=== PATIENT | female | born 1995 | race Caucasian/White ===

== ENCOUNTER 2022-06-30 10:30 | Outpatient (CLI) | payer BC ==
[~2022-06-30] VITALS: Ht 165.1 cm; Wt 90.5 kg
[2022-06-30 10:37] VITALS: TEMP 97.1
[2022-06-30] MEDS ORDERED: PROTONIX20 MG PO (11:12)
[2022-06-30] MEDS ORDERED: PRENATAL TABLET PO (11:12)
[2022-06-30] MEDS ORDERED: ZOFRAN ODT4 MG PO (11:12)
[2022-06-30 11:15] VITALS: BP 123/71; PULSE 71
--- NOTE | 2022-06-30 11:15 | NUR ---
1050- Pt arrives on unit via wheelchair from ED. Pt complains of visual disturbance this morning and a headache. Pt has hydrocephalus and a shut placement. States headaches are chronic. 1056- Pt into bed, EFM and TOCO on and tracing well. O2 sat on and tracing maternal HR. VSS. Assessment completed. Pt denies VB, LOF, UCs. +FM. Pt states she is scheduled for an induction on Saturday in [place] due to FAMILY [employer] shunt. Pt states the visual disturbances have resolved.
[2022-06-30 11:43] LABS: COLLECTION METHOD CLEAN CATCH
[2022-06-30 11:45] VITALS: BP 119/72; PULSE 68
--- NOTE | 2022-06-30 11:45 | NUR ---
1145- Dr Maxwell at bedside. Discusses symptoms and POC.
[2022-06-30 11:47] LABS: BASO # 0.1 K/mm3 (0.0-0.2); BASO % 0.5 % (0.0-2.0); EOS # 0.1 K/mm3 (0.0-0.7); EOS % 1.3 % (0.0-4.0); HEMOGLOBIN 11.9 g/dl (12.5-16.0); LYMPH # 2.4 K/mm3 (1.2-3.4); LYMPH % 25.4 % (20.0-51.0); MEAN CELL VOLUME 85 fl (80.0-100.0); MEAN CORPUSCULAR HEMOGLOBIN 29 pg (27-31); MEAN CORPUSCULAR HGB CONC 33 g/dl (33.0-37.0); MEAN PLATELET VOLUME 10.1 fl (7.4-10.4); MONO # 0.8 K/mm3 (0.1-0.6); MONO % 8.5 % (1.7-9.3); PLATELET COUNT 312 K/mm3 (130-400); RED BLOOD COUNT 4.18 M/mm3 (4.10-5.30)
[2022-06-30 11:48] LABS: HEMATOCRIT 35.6 % (37.0-47.0)
[2022-06-30 11:52] LABS: MUCOUS Present (NOT PRESENT); URINE BACTERIA Rare /hpf (NONE SEEN); URINE WBC 0-2 /hpf (0-2)
[2022-06-30 11:53] LABS: PH 8.5 (5.0-8.5); URINE APPEARANCE Clear (CLEAR/HAZY); URINE BLOOD TRACE-INTACT (NEGATIVE); URINE COLOR Yellow (YELLOW); URINE GLUCOSE Negative (NEGATIVE); URINE KETONE Negative (NEGATIVE); URINE NITRATE Negative (NEGATIVE); URINE PROTEIN(semi-quant) Negative (NEGATIVE); URINE UROBILINOGEN 0.2 E.U/dL (0.2-1.0)
[2022-06-30 12:13] LABS: ALBUMIN 3.1 gm/dL (3.5-5.0); BILIRUBIN,TOTAL 0.3 mg/dL (0.2-1.2); CALCIUM 8.7 mg/dL (8.4-10.2); CREATININE, serum 0.62 mg/dL (0.57-1.11); POTASSIUM 4.1 mmol/L (3.5-4.5); TOTAL PROTEIN 6.6 gm/dL (6.2-8.1)
[2022-06-30 12:15] VITALS: BP 114/69; PULSE 79
[2022-06-30 12:32] VITALS: BP 111/70; PULSE 77
--- NOTE | 2022-06-30 12:32 | NUR ---
1232- Discusses POC, lab results normal, Pt denies visual disturbances and headache at this time. EFM and TOCO off. Pt up to change into street clothes. 1245- Discharge paperwork given and explained. Pt ambulates off unit in stable condition with .
== END 2022-06-30 12:45 | disposition home or self-care (01) ==
LOC: COL.ER 10:30 → LDRO 10:30 → EDSTATUS 10:57 → LDR 11:20 → LDRO 12:45
PROVIDERS: Obstetrics & Gynecology
DX: O26.899 Other specified pregnancy related conditions, unspecified trimester (principal); R51.9 Headache, unspecified; H53.9 Unspecified visual disturbance; Z3A.42 42 weeks gestation of pregnancy